=== PATIENT | female | born 1950 | race Caucasian/White ===

== ENCOUNTER 2017-02-05 12:46 | Observation (INO) | payer OTHER ==
[2017-02-05] VITALS (8 sets, daily range): BP systolic 129–177; BP diastolic 69–89; PULSE 80–87; RESP 15–21; TEMP 98.4–99; O2SAT 97–100
[~2017-02-05] VITALS: Ht 165.1 cm; Wt 65.2 kg
[~2017-02-05 12:46] MED LIST: ESTR30V PV; LORTA5 PO; MULTIPLE VITAMINS; PROT40TA PO; estradiol; medroxyprogesterone
--- NOTE | 2017-02-05 13:18 | PD ---
HPI Chief Complaint: Altered Mental Status Time Seen by Provider: 13:18 Travel History International Travel<30 days: No Contact w/Intl Traveler<30days: No Traveled to known affect area: No History of Present Illness HPI 66-year-old female came to the emergency room with her with history of confusion and amnesia. Her is giving most of the history and says that they were in a gym and she was doing treadmill and around 12:00 she came and said that she has an intense headache. However she continued to exercise on the treadmill. At around 12:15 to 12:30 PM her went back to check on her and at that point she said she was not feeling good and felt very confused. She did not remember anything. She cannot really tell me what is the last thing she remembers. She recognizes her and his name, she knows her date of and her address. She remembers 3 out of for 4 pets. When her reminded her of the cat she had received after her father patient was devastated to find out that her father was since she did not remember the . Her told me that her father last year. She does not remember the current month and her age. 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 [facility] Past Medical History Narrative Medical List of her past medical, surgical, social and family history was reviewed from the nursing note. ?: Not Social History Tobacco Use: No Allergies-Medications (Allergen,Severity, Reaction): Coded Allergies: Vistaril (Verified Allergy, Severe, POLYCYTOSIS, 02/05/17) Erythromycin (Verified Allergy, Mild, Headache, 02/05/17) Comments List of her allergies reviewed from the nursing note. Reported Meds & Prescriptions Reported Meds & Active Scripts Active Narrative Medication List of her home medications reviewed from the nursing note. Review of Systems Except as stated in HPI: all other systems reviewed are Neg Physical Exam Narrative GENERAL: Awake, alert, confused, anxious SKIN: Focused skin assessment warm/dry. HEAD: Atraumatic. Normocephalic. EYES: Pupils equal and round. No scleral icterus. No injection or drainage. ENT: No nasal bleeding or discharge. Mucous membranes pink and moist. NECK: Trachea midline. No JVD. CARDIOVASCULAR: Regular rate and rhythm. No murmur appreciated. RESPIRATORY: No accessory muscle use. Clear to auscultation. Breath sounds equal bilaterally. GASTROINTESTINAL: Abdomen soft, non-tender, nondistended. Hepatic and splenic margins not palpable. MUSCULOSKELETAL: No obvious deformities. No clubbing. No cyanosis. No edema. NEUROLOGICAL: Awake and alert. No obvious cranial nerve deficits. Motor grossly within normal limits. Normal speech. NIH stroke score of 3 for left nasal quadrantanopia and answers neither questions of 1b. Patient was disoriented in time and place PSYCHIATRIC: Appropriate mood and affect; insight and judgment normal. Data Data Last Documented VS Vital Signs Date Time Temp Pulse Resp B/P Pulse Ox O2 Delivery O2 Flow Rate FiO2 02/05/17 14:10 82 16 167/83 99 Room Air 02/05/17 14:03 99.0 Orders Activity Bed Rest (02/05/17 ) Electrocardiogram (02/05/17 ) I-Stat Creatinine (02/05/17 13:29) I-Stat Profile (02/05/17 13:29) Prothrombin Time / Inr (Pt) (02/05/17 13:29) Act Partial Throm Time (Ptt) (02/05/17 13:29) Complete Blood Count With Diff (02/05/17 13:29) Fibrinogen (02/05/17 13:29) Creatine Kinase (Cpk) (02/05/17 13:29) Troponin I (02/05/17 13:29) Ua Includes Microscopic (02/05/17 13:29) Drug Screen, Random Urine (02/05/17 13:29) Type And Screen (02/05/17 13:29) Ct Brain W/O Iv Contrast(Rout) (02/05/17 ) Beta Hcg (Quant/Titer) (02/05/17 13:29) Consult Neurology (02/05/17 ) Blood Glucose (02/05/17 13:29) Ecg Monitoring (02/05/17 13:29) Neuro Checks Q2HX12,Q4H (02/05/17 13:29) Nursing Bedside Swallow Assess .ONCE (02/05/17 13:29) Iv Access Insert/Monitor (02/05/17 13:29) NPO (02/05/17 13:29) Oximetry (02/05/17 13:29) Oxygen Administration (02/05/17 13:29) Sodium Chlor 0.9% 1000 Ml Inj (Ns 1000 M (02/05/17 13:29) Resp Oxygen Jones C Titrat 1-4 L (02/05/17 13:29) Cath For Specimen (02/05/17 13:29) Cta Brain W Iv Contrast W 3d (02/05/17 ) Cta Neck W Iv Contrast W 3d (02/05/17 ) Iohexol 350 Inj (Omnipaque 350 Inj) (02/05/17 13:47) (Hub Use Only)Inp Phy Cons/Ref (02/05/17 ) Alteplase Bolus (Activase Bolus) (02/05/17 14:30) Alteplase Drip (Activase Drip) (02/05/17 14:30) Sodium Chloride 0.9% Inj (Ns Inj) (02/05/17 14:30) Misc Nursing Information (02/05/17 14:30) Resp Oxygen Jones C Titrat 1-4 L (02/05/17 ) Admit Order (Ed Use Only) (02/05/17 14:50) Labs Laboratory Tests Test 02/05/17 02/05/17 02/05/17 13:35 14:07 14:50 White Blood Count 9.1 TH/MM3 Red Blood Count 4.24 MIL/MM3 Hemoglobin 12.3 GM/DL Bedside Hemoglobin 12.9 G/DL Hematocrit 38.4 % Bedside Hematocrit 38.0 % Mean Corpuscular Volume 90.6 FL Mean Corpuscular Hemoglobin 29.1 PG Mean Corpuscular Hemoglobin 32.1 % Concent Red Cell Distribution Width 13.5 % Platelet Count 349 TH/MM3 Mean Platelet Volume 7.9 FL Neutrophils (%) (Auto) 82.8 % Lymphocytes (%) (Auto) 9.4 % Monocytes (%) (Auto) 5.4 % Eosinophils (%) (Auto) 2.0 % Basophils (%) (Auto) 0.4 % Neutrophils # (Auto) 7.5 TH/MM3 Lymphocytes # (Auto) 0.9 TH/MM3 Monocytes # (Auto) 0.5 TH/MM3 Eosinophils # (Auto) 0.2 TH/MM3 Basophils # (Auto) 0.0 TH/MM3 CBC Comment DIFF FINAL Differential Comment Prothrombin Time 10.6 SEC Prothromb Time International 1.0 RATIO Ratio Activated Partial 26.8 SEC Thromboplast Time Fibrinogen 464 mg/dL Bedside Sodium 139 MMOL/L Bedside Potassium 4.4 MMOL/L Bedside Chloride 99 MMOL/L Bedside Blood Urea Nitrogen 15 MG/DL Bedside Creatinine 0.7 MG/DL Bedside Glucose 93 MG/DL Ferritin 249 NG/ML Total Creatine Kinase 44 U/L Troponin I LESS THAN 0.02 NG/ML Vitamin B12 Level 903 PG/ML Thyroid Stimulating Hormone 1.640 uIU/ML 3rd Gen Human Chorionic Gonadotropin, 5 MIU/ML Quant Blood Type A POSITIVE Antibody Screen NEGATIVE Blood Bank Comment Urine Color LIGHT-YELLOW Urine Turbidity CLEAR Urine pH 5.0 Urine Specific [place] 1.020 Urine Protein NEG mg/dL Urine Glucose (UA) NEG mg/dL Urine Ketones NEG mg/dL Urine Occult Blood NEG Urine Nitrite NEG Urine Bilirubin NEG Urine Urobilinogen LESS THAN 2.0 MG/DL Urine Leukocyte Esterase NEG Urine RBC 1 /hpf Urine Squamous Epithelial 1 /hpf Cells MDM Medical Decision Making Medical Screen Exam Complete: Yes Emergency Medical Condition: Yes Medical Record Reviewed: Yes Interpretation(s) Twelve-lead EKG was reviewed by me. Normal sinus rhythm, left axis deviation, right bundle branch block. Heart rate of 82 bpm. Differential Diagnosis TGA, acute stroke, intracranial bleed Narrative Course 1:54 PM stroke alert was called. I discussed the case with the neurologist irrigation worker Dr. Egan. As per her if the creatinine was okay to go ahead and order a CT angiogram of the brain. She wanted to be called back once the head CT was done. She thought that patient's NIH score was pretty low to get TPA. She does not think patient is a TPA candidate since the risks are higher but wants to be called back with the head CT first. 2:[address] scan was called back by the radiologist to be negative for any acute bleed. I put a call back to Dr. Egan again 2:[address] Egan wants the patient to get TPA at this point. I discussed the risks and the benefits with the patient and her . They're agreeable to it. She has no contraindications for TPA. Awaiting for the attorney lawyer to call back for admission. 2:41 PM I was just told by Dr. Egan after she examined the patient she said that patient's visual field is back to normal. Given that she does not want the patient to get any TPA. That order has been canceled. Currently awaiting for the hospitalist to call back for admission. Critical Care Narrative Aggregate critical care time was 30 minutes. Time to perform other separately billable procedures was not included in the critical care time. My time did not include minutes spent treating any other patients simultaneously or on activities that did not directly contribute to the patient's treatment. The services I provided to this patient were to treat and/or prevent clinically significant deterioration that could result in: Stroke alert I provided critical care services requiring my management, as noted below: Chart data review, documentation time, medication orders and management, vital sign assessments/reviewing monitor data, ordering and reviewing lab tests, ordering and interpreting/reviewing x-rays and diagnostic studies, care of the patient and discussion of the patient with the admitting physicians. Procedures EKG Prior to Arrival: No Diagnosis Primary Impression: TIA (transient ischemic attack) Qualified Code: G45.4 - Transient global amnesia Additional Impression: TGA (transient global amnesia) Admitting Information Admitting Physician Requests: Observation Sundar Llamas MD Feb 05, 2017 13:18
[2017-02-05] MEDS ORDERED: SODIUM CHLOR 0.9% 1000 ML INJ 1,000 ML IV ONE (13:29)
[2017-02-05] MEDS ORDERED: IOHEXOL 350 MG/ML 10 ML VIAL (for RAD DIAG) IV ONE (13:47)
[2017-02-05 13:48] LABS: AUTOMATED NEUTROPHIL # 7.5 TH/MM3 (1.8-7.7); BASOPHIL % 0.4 % (0.0-2.0); EOSINOPHIL # 0.2 TH/MM3 (0-0.4); HEMATOCRIT 38.4 % (35.0-46.0); HEMO FLAGS DIFF FINAL; I-STAT POTASSIUM 4.4 MMOL/L (3.5-4.9); I-STAT SODIUM 139 MMOL/L (138-146); LYMPH % 9.4 % (9.0-44.0); LYMPHOCYTE # 0.9 TH/MM3 (1.0-4.8); MEAN CELL VOLUME 90.6 FL (80.0-100.0); MEAN CORPUSCULAR HEMOGLOBIN 29.1 PG (27.0-34.0); MEAN CORPUSCULAR HGB CONC 32.1 % (32.0-36.0); MONO % 5.4 % (0.0-8.0); NEUT % 82.8 % (16.0-70.0); PLATELET COUNT 349 TH/MM3 (150-450); RED BLOOD COUNT 4.24 MIL/MM3 (4.00-5.30); RED CELL DISTRIBUTION WIDTH 13.5 % (11.6-17.2); WHITE BLOOD COUNT 9.1 TH/MM3 (4.0-11.0)
[2017-02-05 14:01] LABS: APTT (PATIENT) 26.8 SEC (24.3-30.1); PROTHROMBIN TIME - PATIENT 10.6 SEC (9.8-11.6)
--- NOTE | 2017-02-05 14:02 | RADRPT ---
EXAM DATE/TIME: 02/05/2017 13:44 [facility] COMPARISON: No previous studies available for comparison. INDICATIONS : Stroke alert. Memory loss, confusion, cephagia, and dizziness. IV CONTRAST: 90 cc Omnipaque 350 (iohexol) IV ; Cumulative dose for multiple exams. RADIATION DOSE: 25.94 CTDIvol (mGy) ; Combined studies MEDICAL HISTORY : None SURGICAL HISTORY : None. ENCOUNTER: Initial ACUITY: 1 day PAIN SCALE: 7/10 LOCATION: cranial TECHNIQUE: Volumetric scanning was performed using a multi-row detector CT scanner. The data was post processed with a variety of visualization algorithms including full volume maximum intensity projection, multi -planar sliding thin slab reformation, curved planar reformation, and surface rendering techniques. Using automated exposure control and adjustment of the mA and/or kV according to patient size, radiat ion dose was kept as low as reasonably achievable to obtain optimal diagnostic quality images. DICO M format image data is available electronically for review and comparison. FINDINGS: There is excellent visualization of the major intracranial arteries out to the second-order branch ve ssels. There is no evidence for aneurysm, vessel truncation or stenosis, and no evidence for vascula r malformation. 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 The right vertebral artery is diminutive. CONCLUSION: No acute [place] of [place] vascular findings. Loyd Corona MD on February 05, 2017 at 13:57 Board Certified Radiologist. This report was verified electronically.
[2017-02-05 14:05] LABS: BETA HCG QUANT 5 MIU/ML (0-5)
--- NOTE | 2017-02-05 14:05 | RADRPT ---
EXAM DATE/TIME: 02/05/2017 13:36 [facility] COMPARISON: No previous studies available for comparison. INDICATIONS : Stroke alert. Memory loss, confusion, cephagia, and dizziness. RADIATION DOSE: 31.97 CTDIvol (mGy) This report was called by Dr Biswas to Dr Serrano at 1400 MEDICAL HISTORY : None SURGICAL HISTORY : None. ENCOUNTER: Initial ACUITY: 1 day PAIN SCALE: 7/10 LOCATION: cranial TECHNIQUE: Multiple contiguous axial images were obtained of the head. Using automated exposure control and adj ustment of the mA and/or kV according to patient size, radiation dose was kept as low as reasonably a chievable to obtain optimal diagnostic quality images. DICOM format image data is available electro nically for review and comparison. FINDINGS: CEREBRUM: The ventricles are normal for age. No evidence of midline shift, mass lesion, hemorrhage or acute in farction. No extra-axial fluid collections are seen. POSTERIOR FOSSA: The cerebellum and brainstem are intact. The 4th ventricle is midline. The cerebellopontine angle i s unremarkable. EXTRACRANIAL: The visualized portion of the orbits is intact. SKULL: The calvaria is intact. No evidence of skull fracture. CONCLUSION: Normal examination. Be Biswas Jr., MD on February 05, 2017 at 14:01 Board Certified Radiologist. This report was verified electronically.
[2017-02-05 14:07] LABS: CREATINE KINASE 44 U/L (26-192)
--- NOTE | 2017-02-05 14:20 | RADRPT ---
EXAM DATE/TIME: 02/05/2017 13:44 [facility] COMPARISON: No previous studies available for comparison. INDICATIONS : Stroke alert. Memory loss, confusion, cephagia, and dizziness. IV CONTRAST: 90 cc Omnipaque 350 (iohexol) IV ; Cumulative dose for multiple exams. RADIATION DOSE: 25.94 CTDIvol (mGy) ; Combined studies MEDICAL HISTORY : None SURGICAL HISTORY : None. ENCOUNTER: Initial ACUITY: 1 day PAIN SCALE: 0/10 LOCATION: neck Elevated flow velocities and ICA/CCA ratios have been found to correlate with increased degrees of vessel stenosis, calculated as percentage of diameter relative to a normal segment of distal ICA/CCA. TECHNIQUE: Volumetric scanning was performed using a multirow detector CT scanner. The data was post processed with a variety of visualization algorithms including full-volume maximum intensity projection, multip lanar sliding thin-slab reformation, curved-planar reformation, and surface-rendering techniques. Us ing automated exposure control and adjustment of the mA and/or kV according to patient size, radiatio n dose was kept as low as reasonably achievable to obtain optimal diagnostic quality images. DICOM f ormat image data is available electronically for review and comparison. FINDINGS: AORTIC ARCH: There is a three-vessel origin of the great vessels from the aorta. No evidence of ostial narrowing. RIGHT CAROTID: The common carotid artery is intact. The carotid bulb has a normal configuration without ulceration o r narrowing. The internal carotid artery lumen is smooth without stenosis. The external carotid ryan ry is intact. LEFT CAROTID: The common carotid artery is intact. The carotid bulb has a normal configuration without ulceration or narrowing. The internal carotid artery lumen is smooth without stenosis. The external carotid ar romelia is intact. VERTEBRALS: The left vertebral artery is dominant. The right is diffusely small in caliber measuring between one and 2 mm in diameter. No stenotic lesions are seen. CONCLUSION: 1. Patent carotid arteries and vertebral arteries. The left vertebral artery is dominant. Be Biswas Jr., MD on February 05, 2017 at 14:15 Board Certified Radiologist. This report was verified electronically.
[2017-02-05] MEDS ORDERED: ALTEPLASE BOLUS 9 MG/9 ML SYR IV ONE (14:30)
[2017-02-05] MEDS ORDERED: ALTEPLASE DRIP IV ONE (14:30)
[2017-02-05] MEDS ORDERED: MISCELLANEOUS NURSING INFORMATION XX PRN (14:30)
[2017-02-05] MEDS ORDERED: SODIUM CHLORIDE 0.9% 50 ML BAG IVF ONE (14:30)
[2017-02-05] MEDS ORDERED: ASPIRIN 325 MG TAB PO SCH (15:15)
[2017-02-05 15:18] LABS: BLOOD, URINE NEG (NEG); GLUCOSE,URINE NEG (NEG); KETONE, URINE NEG (NEG); NITRITE,URINE NEG (NEG); SQUAMOUS EPITHELIAL CELL URINE 1 /hpf (0-5); URINE COLOR LIGHT-YELLOW (YELLW/STRAW)
--- NOTE | 2017-02-05 15:36 | HHI.HP ---
HPI Service [facility] Hospitalists Primary Care Physician Dr. Leonides Nunez Admission Diagnosis TIA Chief Complaint: Confusion, memory loss Travel History International Travel<30 Days: No Contact w/Intl Traveler <30 Da: No Traveled to Known Affected Are: No History of Present Illness Ms. Cardoso is a pleasant 66 y/o WF without significant PMH who presented to the ED on 02/05/17 with acute onset of confusion and amnesia. Her gives most of the history and says that they were in a gym and she was doing some strength training exercises and at around 12:00 she told him she had an intense headache. She decided not to do any further exercises and went to a machine to do some stretching and at around 12:15 to 12:30 PM her went back to check on her and at that point she said she was feeling very confused and could not remember things. She cannot really tell me what is the last thing she remembers but states that she does not remember much about today up until being in the hospital. Her has told her things repeatedly about today but she can't recall them back after a few minutes. She is alert and oriented to herself and is able to tell me history about herself and her family but could not remember that it is Saturday a few minutes after she was told that today is Saturday. Head CT was normal. CTA of the head and neck were negative. Physical examination in the ED noted left nasal quadrantanopia but this resolved when she was evaluated by Neurology and TPA was not given. There was no reported speech deficits or any weakness. Pt reports no previous similar episodes. She states that her mother had hx of CVA but could not remember how old her mother was when she had the stroke. 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 Review of Systems Constitutional: DENIES: Fever, Chills Eyes: COMPLAINS OF: Vision loss, DENIES: Blurred vision, Double Vision Ears, nose, mouth, throat: DENIES: Hearing loss, Hoarseness Respiratory: DENIES: Cough, Shortness of breath Cardiovascular: DENIES: Chest pain, Lower Extremity Edema Gastrointestinal: DENIES: Abdominal pain, Black stools, Bloody stools, Vomiting , Difficulty Swallowing Genitourinary: DENIES: Dysuria Musculoskeletal: DENIES: Muscle aches, Back pain, Neck pain Integumentary: DENIES: Rash Neurologic: COMPLAINS OF: Headache, DENIES: Abnormal gait, Localized weakness , Speech Problems Psychiatric: COMPLAINS OF: Confusion Past Family Social History Past Medical History Malabsorption issues related to Duodenal switch surgery Remote hx of migraine headaches Post-menopausal on HRT Past Surgical History Duodenal switch surgery in [place] in 2006 Cholecystectomy Right knee surgery Reported Medications Estrogen Provera Allergies: Coded Allergies: Vistaril (Verified Allergy, Severe, POLYCYTOSIS, 02/05/17) Erythromycin (Verified Allergy, Mild, Headache, 02/05/17) Family History Mother with hx of CVA Father with hx of CAD Social History Denies any tobacco or illicit drug use Pt drinks rarely, socially She lives locally with her in [place] for the last 19 years. 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 She had her have two daughters and two grand children. Physical Exam Vital Signs Vital Signs Date Time Temp Pulse Resp B/P Pulse Ox O2 Delivery O2 Flow Rate FiO2 02/05/17 14:10 82 16 167/83 99 Room Air 02/05/17 14:03 99.0 85 16 146/79 98 Room Air 02/05/17 14:02 99 Room Air 02/05/17 13:51 86 161/79 02/05/17 13:45 85 21 167/86 100 Room Air 02/05/17 13:41 84 20 169/81 98 Room Air 02/05/17 13:30 82 20 175/76 Room Air 02/05/17 12:50 98.4 87 15 177/89 99 Physical Exam GENERAL: This is a well-nourished, well-developed patient, in no apparent distress. HEENT: Atraumatic. Normocephalic. No temporal or scalp tenderness. PERRLA. Extraocular motions intact. No scleral icterus. No injection or drainage. Uvula midline. Airway patent. NECK: Trachea midline, supple, nontender. CARDIO: Regular. RESP: CTA bilaterally. No wheezes, rales, or rhonchi. ABD: +BS, soft, non-tender, nondistended. No hepato-splenomegaly, or palpable masses. No guarding. EXT: Extremities without clubbing, cyanosis, or edema. NEURO: Awake and alert. Memory deficits but short and jail, unable to recall the day of the week after she was told this about 5 mins prior. Cranial nerves II through XII intact. Motor and sensory grossly within normal limits. Five out of 5 muscle strength in all muscle groups. Normal speech. Laboratory Laboratory Tests Test 02/05/17 02/05/17 02/05/17 13:35 14:07 14:50 White Blood Count 9.1 Red Blood Count 4.24 Hemoglobin 12.3 Bedside Hemoglobin 12.9 Hematocrit 38.4 Bedside Hematocrit 38.0 Mean Corpuscular Volume 90.6 Mean Corpuscular Hemoglobin 29.1 Mean Corpuscular Hemoglobin 32.1 Concent Red Cell Distribution Width 13.5 Platelet Count 349 Mean Platelet Volume 7.9 Neutrophils (%) (Auto) 82.8 Lymphocytes (%) (Auto) 9.4 Monocytes (%) (Auto) 5.4 Eosinophils (%) (Auto) 2.0 Basophils (%) (Auto) 0.4 Neutrophils # (Auto) 7.5 Lymphocytes # (Auto) 0.9 Monocytes # (Auto) 0.5 Eosinophils # (Auto) 0.2 Basophils # (Auto) 0.0 CBC Comment DIFF FINAL Differential Comment Prothrombin Time 10.6 Prothromb Time International 1.0 Ratio Activated Partial 26.8 Thromboplast Time Fibrinogen 464 Bedside Sodium 139 Bedside Potassium 4.4 Bedside Chloride 99 Bedside Blood Urea Nitrogen 15 Bedside Creatinine 0.7 Bedside Glucose 93 Total Creatine Kinase 44 Troponin I LESS THAN 0.02 Human Chorionic Gonadotropin, 5 Quant Blood Type A POSITIVE Antibody Screen NEGATIVE Blood Bank Comment Urine Color LIGHT-YELLOW Urine Turbidity CLEAR Urine pH 5.0 Urine Specific [place] 1.020 Urine Protein NEG Urine Glucose (UA) NEG Urine Ketones NEG Urine Occult Blood NEG Urine Nitrite NEG Urine Bilirubin NEG Urine Urobilinogen LESS THAN 2.0 Urine Leukocyte Esterase NEG Urine RBC 1 Urine Squamous Epithelial 1 Cells Result Diagram: 02/05/17 1335 Imaging Last Impressions Neck CTA 02/05/17 0000 Signed Impressions: Service Date/Time: Sunday, February 05, 2017 13:44 - CONCLUSION: 1. Patent carotid arteries and vertebral arteries. The left vertebral artery is dominant. Be Biswas Jr., MD Head CTA 02/05/17 0000 Signed Impressions: Service Date/Time: Sunday, February 05, 2017 13:44 - CONCLUSION: No acute [place] of [place] vascular findings. Loyd Corona MD Head CT 02/05/17 0000 Signed Impressions: Service Date/Time: Sunday, February 05, 2017 13:36 - CONCLUSION: Normal examination. Be Biswas Jr., MD Septic Shock Reassessment Heart: Regular rate and rhythm Lungs: Clear Skin: Warm Assessment and Plan Problem List: (1) TGA (transient global amnesia) Status: Acute Plan: - Pt is a 66 y/o female who was admitted for acute memory loss and confusion, she was brought in as a stroke alert. - Head CT was normal - CTA of the head and neck were negative - She was not given TPA in the ED - Neurology has seen the patient and is considering TGA vs. complex migraine vs. TIA vs. other. - Pt has been on Estrogen for many years. - MRI Brain is ordered - 2D echo - EEG is ordered - Permissive HTN - Neuro checks - Swallow evaluation ordered - Telemetry - Hypercoagulable panel has been ordered. - Supportive care - DVT prophylaxis with SCDs Assessment and Plan Patient examined. Assessment and plan formulated with Katie Camilo PA-C. I agree with the above. amnesia. consider complex migraine. r/o tia. evaluate for metabolic causes. pt is worried about a genetic hypercoagulable d/o. neuro following. f/u pending imaging. Physician Certification 2 Midnight Certification Type: Admission for Inpatient Services Order for Inpatient Services The services are ordered in accordance with Medicare regulations or non- Medicare payer requirements, as applicable. In the case of services not specified as inpatient-only, they are appropriately provided as inpatient services in accordance with the 2-midnight benchmark. Estimated LOS (days): 3 3 days is the estimated time the patient will need to remain in the hospital, assuming treatment plan goals are met and no additional complications. Post-Hospital Plan: Home Katie Camilo Feb 05, 2017 15:36 Shoaib Cowan MD Feb 05, 2017 18:57
--- NOTE | 2017-02-05 15:52 | MB ---
cc: CHIKA RIVERA M.D. DATE OF CONSULTATION: 02/05/2017 DATE OF : 1950, 66 REASON FOR CONSULTATION: Stroke alert HISTORY OF PRESENT ILLNESS: The patient is a 66 year-old woman who came in with confusion, amnesia. The gives the history as the patient cannot recall being at the gym. She was doing some stretches he states and some weights, and around 12 o'clock she went to see him at a different part of the gym telling him that she had a headache. She continued to exercise. About 12:15 to 12:30, went back and was confused, could not remember anything. I was told that she had a right quadrant defect, nasal. Upon my exam, that has resolved. She still is confused about the events. She can tell me her date of but cannot recall her age. She can tell me her address. She notes her current and old phone number. She knows the current president, not the one prior to that. She still has some lapses of memory. She cannot remember yesterday either. She can name her two children. 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 She states that she has some family members with some type of factor deficiency, hypercoagulable syndrome, possibly. Currently she denies any headache, chest pain, shortness of breath, nausea, vomiting, diarrhea, weakness, numbness or tingling. ALLERGIES: VISTARIL ERYTHROMYCIN She was able to tell me that. MEDICATIONS: She does not take any medicine for I believe vitamin E. SOCIAL HISTORY: She is , retired. No history of drugs, alcohol or tobacco. PHYSICAL EXAMINATION: Vitals: temperature is 99, pulse 82, respiratory rate 16, blood pressure 167/83, sating at 99% room air. Neck: Her neck is supple. There are no carotid bruits. Heart: Regular. No murmurs, rubs or gallops. Lungs are clear. She is awake and alert. She knows she is at [place], cannot tell me today's date. She knows her date of but not her age. Neurologic: Her speech is fluent. Her pupils reactive. Visual penny are full to confrontation bilaterally. There is no quadrant defect. Face symmetrical. Tongue is midline. Motor: No drift. No leg lag. Cerebellar testing normal. Toes are downgoing. DTRs are 1+, sensory normal. Cerebellar normal. Gait is withheld. She is at bedrest. LABORATORY DATA: Reviewed. CBC was really unremarkable. Chemistries: Normal as well. Coag panel was fibrinogen of 464. IMAGING STUDIES CT brain, [place] of [place] and carotids were all without any acute findings. IMPRESSION A 66 year-old woman with what sounds like a transient global amnestic episode. Onset was a headache prior. She does have a history of migranes, could this be a complicated migraine, certainly in the differential. RECOMMENDATIONS: Recommend putting her on a baby aspirin, will get a 2D echo. Also there is some questionable, hypercoagulable issues with her family. We can certainly get a hypercoagulable panel. Dr. Allen already evaluated her last year for hemochromatosis. There is a note there. Her ferritin levels have been less than what he expected for such a condition. Certainly that can be reassessed as well. At this point and time, will keep her on bed rest tonight, tomorrow, get her out of bed, ambulate her. Given the fact that her NIH is very low, I do not recommend TPA given the risks of possible bleeding and other complications from the medication. The quadrant defect, if it was there is no longer there, so that has improved. Will go ahead and continue current care. Further recommendations will be made if needed. MD WAYNE Olguin/CORRIE /2:55 PM /3:14 PM
[2017-02-05] MEDS: ASPIRIN 81 MG CHEW TAB PO SCH (16:02)
--- NOTE | 2017-02-05 17:00 | EKG ---
Date Performed: 02/05/2017 Time Performed: 14:14:12 PTAGE: 66 years EKG: Sinus rhythm MARKED LEFT AXIS DEVIATION LAFB RIGHT BUNDLE BRANCH BLOCK ABNORMAL ECG PREVIOUS TRACING : 12/06/2003 15.01 Compared to prior tracing no significant change DOCTOR: Renée Jaramillo Interpretating Date/Time 02/05/2017 17:00:05
[2017-02-05 17:50] LABS: FERRITIN 249 NG/ML (8-252)
--- NOTE | 2017-02-05 18:31 | RADRPT ---
EXAM DATE/TIME: 02/05/2017 18:06 [facility] COMPARISON: CT BRAIN W/O CONTRAST, February 05, 2017, 13:36. INDICATIONS : CVA. MEDICAL HISTORY : None. SURGICAL HISTORY : Cholecystectomy. Gastric bypass. ENCOUNTER: Subsequent ACUITY: 1 day PAIN SCORE: 3/10 LOCATION: cranial TECHNIQUE: Multiplanar, multisequence MRI of the brain was performed without contrast. FINDINGS: CEREBRUM: The ventricles are normal for age. No evidence of midline shift, mass lesion, hemorrhage or acute in farction. No extraaxial fluid collections are seen. The pituitary gland and suprasellar cistern are normal in configuration. WHITE MATTER: Minimal scattered foci of bright T2 signal abnormalities are seen in the white matter. POSTERIOR FOSSA: The cerebellum and brainstem are intact. The 4th ventricle is midline. The cerebellopontine angle is unremarkable. The cerebellar tonsils are normal in position. DIFFUSION IMAGING: No focal areas of restricted diffusion are seen. No evidence of acute infarction. EXTRACRANIAL: The visualized portions of the orbits and paranasal sinuses are unremarkable. CONCLUSION: 1. Nonspecific white matter changes. 2. No acute infarction. John Mckenzie MD on February 05, 2017 at 18:27 Board Certified Radiologist. This report was verified electronically.
[2017-02-06] VITALS (8 sets, daily range): BP systolic 131–147; BP diastolic 68–78; PULSE 64–74; RESP 16–18; TEMP 97.9–98.7; O2SAT 96–97
[2017-02-06] MEDS ORDERED: ACETAMINOPHEN 325 MG TAB PO PRN (08:30)
[2017-02-06] MEDS ORDERED: ONDANSETRON HCL 4 MG/2 ML VIAL IV PRN (08:30)
--- NOTE | 2017-02-06 08:35 | HHI.PR ---
Subjective Remarks Pt complains of a continued slight headache. She reports that her memory is improving except for events related to when she was at the gym yesterday and prior to coming to the hospital. She is able to tell me its Saturday without any difficulty and is AAOx3 Objective Vitals Vital Signs Date Time Temp Pulse Resp B/P Pulse Ox O2 Delivery O2 Flow Rate FiO2 02/06/17 04:26 64 02/06/17 03:47 98.7 69 18 139/68 97 02/06/17 02:50 21 02/06/17 02:06 98.0 74 18 147/78 97 02/06/17 00:00 66 02/05/17 19:49 98.7 80 18 129/69 97 02/05/17 14:10 82 16 167/83 99 Room Air 02/05/17 14:03 99.0 85 16 146/79 98 Room Air 02/05/17 14:02 99 Room Air 02/05/17 13:51 86 161/79 02/05/17 13:45 85 21 167/86 100 Room Air 02/05/17 13:41 84 20 169/81 98 Room Air 02/05/17 13:30 82 20 175/76 Room Air 02/05/17 12:50 98.4 87 15 177/89 99 Result Diagram: 02/05/17 1335 Other Results Laboratory Tests Test 02/05/17 02/05/17 02/05/17 13:35 14:07 14:50 White Blood Count 9.1 TH/MM3 Red Blood Count 4.24 MIL/MM3 Hemoglobin 12.3 GM/DL Bedside Hemoglobin 12.9 G/DL Hematocrit 38.4 % Bedside Hematocrit 38.0 % Mean Corpuscular Volume 90.6 FL Mean Corpuscular Hemoglobin 29.1 PG Mean Corpuscular Hemoglobin 32.1 % Concent Red Cell Distribution Width 13.5 % Platelet Count 349 TH/MM3 Mean Platelet Volume 7.9 FL Neutrophils (%) (Auto) 82.8 % Lymphocytes (%) (Auto) 9.4 % Monocytes (%) (Auto) 5.4 % Eosinophils (%) (Auto) 2.0 % Basophils (%) (Auto) 0.4 % Neutrophils # (Auto) 7.5 TH/MM3 Lymphocytes # (Auto) 0.9 TH/MM3 Monocytes # (Auto) 0.5 TH/MM3 Eosinophils # (Auto) 0.2 TH/MM3 Basophils # (Auto) 0.0 TH/MM3 CBC Comment DIFF FINAL Differential Comment Prothrombin Time 10.6 SEC Prothromb Time International 1.0 RATIO Ratio Activated Partial 26.8 SEC Thromboplast Time Fibrinogen 464 mg/dL Bedside Sodium 139 MMOL/L Bedside Potassium 4.4 MMOL/L Bedside Chloride 99 MMOL/L Bedside Blood Urea Nitrogen 15 MG/DL Bedside Creatinine 0.7 MG/DL Bedside Glucose 93 MG/DL Ferritin 249 NG/ML Total Creatine Kinase 44 U/L Troponin I LESS THAN 0.02 NG/ML Vitamin B12 Level 903 PG/ML Thyroid Stimulating Hormone 1.640 uIU/ML 3rd Gen Human Chorionic Gonadotropin, 5 MIU/ML Quant Blood Type A POSITIVE Antibody Screen NEGATIVE Blood Bank Comment Urine Color LIGHT-YELLOW Urine Turbidity CLEAR Urine pH 5.0 Urine Specific [place] 1.020 Urine Protein NEG mg/dL Urine Glucose (UA) NEG mg/dL Urine Ketones NEG mg/dL Urine Occult Blood NEG Urine Nitrite NEG Urine Bilirubin NEG Urine Urobilinogen LESS THAN 2.0 MG/DL Urine Leukocyte Esterase NEG Urine RBC 1 /hpf Urine Squamous Epithelial 1 /hpf Cells Imaging Last Impressions Neck CTA 02/05/17 Signed Impressions: Service Date/Time: Sunday, February 05, 2017 13:44 - CONCLUSION: 1. Patent carotid arteries and vertebral arteries. The left vertebral artery is dominant. Be Biswas Jr., MD Head CTA 02/05/17 Signed Impressions: Service Date/Time: Sunday, February 05, 2017 13:44 - CONCLUSION: No acute [place] vascular findings. Loyd Corona MD Head CT 02/05/17 Signed Impressions: Service Date/Time: Sunday, February 05, 2017 13:36 - CONCLUSION: Normal examination. Be Biswas Jr., MD Brain MRI 02/05/17 Signed Impressions: Service Date/Time: Sunday, February 05, 2017 18:06 - CONCLUSION: 1. Nonspecific white matter changes. 2. No acute infarction. John Mckenzie MD Objective Remarks General: NAD, AAOx3 Chest: CTA bilaterally Cardiac: Regular Abd: +BS, soft ND/NT Ext: No edema Neuro: No focal deficits A/P Problem List: (1) TGA (transient global amnesia) Status: Acute Plan: - Pt is a 66 y/o female who was admitted for acute memory loss and confusion, she was brought in as a stroke alert. - Head CT was normal - CTA of the head and neck were negative - She was NOT given TPA in the ED - Neurology has seen the patient and is considering TGA vs. complex migraine vs. TIA vs. other. - Pt has been on Estrogen for many years. - Pt reports some family hx of hypercoagulable state - MRI Brain --> Nonspecific white matter changes. No acute infarction. - 2D echo --> Pending - EEG --> Pending - Neuro checks - Telemetry with NSR - Hypercoagulable panel is pending. - Supportive care - Pt will need outpt followup with her PCP, Dr. Leonides Nunez, 1 week following discharge. - Pt will need outpt followup with Neurology, Dr. Egan, in 2 weeks Assessment and Plan Patient examined. Assessment and plan formulated with Katie Camilo PA-C. I agree with the above. pt feels well. eager for d/c. eeg/echo pending. hypercoag pending possible migraine. TGA. neurology ok with d/c and f/u. Katie Camilo Feb 06, 2017 08:35 Shoaib Cowan MD Feb 06, 2017 22:15
[2017-02-06] MEDS: ASPIRIN 81 MG CHEW TAB PO SCH (10:17)
[2017-02-06 11:25] LABS: AMPHETAMINE, URINE NEG (NEG); BARBITURATES, URINE NEG (NEG); COCAINE, URINE NEG (NEG)
--- NOTE | 2017-02-06 14:31 | HHI.DCPOC ---
Discharge Care Plan Diagnosis: (1) TGA (transient global amnesia) Goals to Promote Your Health * To prevent worsening of your condition and complications * To maintain your health at the optimal level Directions to Meet Your Goals Take your medications as prescribed Follow your dietary instruction Follow activity as directed Keep your appointments as scheduled Take your immunizations and boosters as scheduled If your symptoms worsen call your PCP, if no PCP go to Urgent Care Center or Emergency Room Smoking is Dangerous to Your Health. Avoid second hand smoke Call the 24-hour hour crisis hotline for domestic abuse at Katie Camilo Feb 06, 2017 14:31
[2017-02-06] MEDS ORDERED: ASPI81CH25 PO (14:32)
--- NOTE | 2017-02-06 21:40 | ECHRPT ---
Indication: Transient cerebral ischemic attack, unspecified CONCLUSIONS Normal left ventricular size and wall thickness. The left ventricular systolic function is normal wi th an estimated ejection fraction in the range of 60-65%. Left ventricular diastolic function parameters a re normal. Trace mitral valve regurgitation. BP: 177 / 89 HR: 87 Rhythm: MEASUREMENTS (Male / Female) Normal Values Technical Quality:Good 2D ECHO LV Diastolic Diameter PLAX 4.4 cm 4.2 - 5.9 / 3.9 - 5.3 cm LV Systolic Diameter PLAX 3.2 cm IVS Diastolic Thickness 1.2 cm 0.6 - 1.0 / 0.6 - 0.9 cm LVPW Diastolic Thickness 1.1 cm 0.6 - 1.0 / 0.6 - 0.9 cm LV Relative Wall Thickness 0.5 RV Internal Dim ED PLAX 2.0 cm M-MODE Aortic Root Diameter MM 3.2 cm LA Systolic Diameter MM 3.1 cm LA Ao Ratio MM 1.0 AV Cusp Separation MM 1.7 cm DOPPLER Mitral E Point Velocity 90.9 cm/s Mitral A Point Velocity 110.0 cm/s Mitral E to A Ratio 0.8 FINDINGS LEFT VENTRICLE Normal left ventricular size and wall thickness. The left ventricular systolic function is normal wi th an estimated ejection fraction in the range of 60-65%. Left ventricular diastolic function parameters a re normal. RIGHT VENTRICLE Normal right ventricular size and systolic function. LEFT ATRIUM The left atrial size is normal. RIGHT ATRIUM The right atrial size is normal. ATRIAL SEPTUM Normal atrial septal thickness without atrial level shunting by limited color doppler interrogation. AORTA The aortic root and proximal ascending aorta are normal in size on limited imaging. MITRAL VALVE Structurally normal mitral valve. No mitral valve stenosis . Trace mitral valve regurgitation. AORTIC VALVE Trileaflet aortic valve. No aortic valve stenosis or regurgitation. TRICUSPID VALVE Structurally normal tricuspid valve. No tricuspid valve stenosis or regurgitation. PULMONARY VALVE The pulmonary valve is not well visualized. VESSELS The inferior vena cava is normal in size. PERICARDIUM No pericardial effusion. Renée Jaramillo MD, FACC (Electronically Signed) Final Date:06 February 2017 21:39
--- NOTE | 2017-02-07 07:41 | MG ---
cc: JAMI HAMILTON MD Lab No: Date: 02/06/2017 Age: Sex: F Race: ELECTROENCEPHALOGRAM RECORD NUMBER [id number] DATE OF 1950 HISTORY A 66-year-old female with a history of gastric bypass, headache. DESCRIPTION Posterior rhythm demonstrates 6-8 Hz activity, 20-50 microvolts. Low amplitude beta theta in the frontal channels. Good anterior to posterior gradient. Good driving with photic stimulation. Attenuation and slowing suggestive of drowsy state followed by vertex waves and K complexes and spindles with transition in to stage II sleep. Single lead EKG showing sinus rhythm. INTERPRETATION Normal awake, asleep EEG. Clinical correlation. Jami Hamilton MD MG/KK /8:35 PM /7:38 AM
[2017-02-08 13:52] LABS: THROMBIN TIME FOR LA ND sec (13-19)
[2017-02-11 19:50] LABS: PHOSPHATIDYLSERINE AB IGA LESS THAN 20.0 U/mL (()); PHOSPHATIDYLSERINE AB IGM LESS THAN 25.0 U/mL (())
== END 2017-02-06 16:23 | disposition home or self-care (01) ==
LOC: NEPC 12:46 → NEDA 14:52 → NEPHCDU 19:34
PROVIDERS: ADMIT Hospitalist; ATTEND Hospitalist
DX: G45.4 Transient global amnesia (principal); R51 Headache; K90.9 Intestinal malabsorption, unspecified; R94.31 Abnormal electrocardiogram [ECG] [EKG]; Z98.84 Bariatric surgery status
CPT/HCPCS: 70450; 70496; 70498; 70551; 80307; 81001; 81240; 82435; 82550; 82565; 82607; 82728; 82947; 84132; 84295; 84443; 84484; 84520; 84702; 85025; 85303; 85306; 85384; 85610; 85613; 85730; 86146; 86148; 86850; 86900; 86901; 93005; 93306; 95819; 99291; G0378; J7030; P9612; Q9967